=== PATIENT | male | born 2000 | race Caucasian/White ===

== ENCOUNTER 2021-12-31 19:33 | Emergency (ER) | payer OTHER ==
[~2021-12-31] VITALS: Ht 170.2 cm; Wt 59.0 kg
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
[2021-12-31] MEDS ORDERED: CEFTRIAXONE 1 G in IV DEXTROSE 5% 50 ML IV ONE (19:45)
[2021-12-31] MEDS ORDERED: HALOPERIDOL LACTATE 5 MG/1 ML VIAL IM ONE (19:45)
[2021-12-31] MEDS ORDERED: IV NORMAL SALINE 1000 ML BAG IV ONE (19:45)
[2021-12-31] MEDS ORDERED: LIDOCAINE 2% (GLYDO= UROJET) 10 ML JELLY MM ONE ×2 (20:00→22:47)
[2021-12-31] MEDS ORDERED: HALOPERIDOL LACTATE 5 MG/1 ML VIAL ONE (20:07)
[2021-12-31 20:30] LABS: MEAN CORPUSCULAR VOLUME 88.8 fL (73.0-96.2); PLATELET COUNT (AUTO) 243 K/uL (152-348)
[2021-12-31] MEDS ORDERED: LORAZEPAM 2 MG/1 ML VIAL IM ONE (20:30)
[2021-12-31 20:34] LABS: CARBON DIOXIDE 28 mmol/L (21-32); CHLORIDE 107 mmol/L (98-107); CREATININE 0.9 mg/dL (0.6-1.3); GLUCOSE 84 mg/dL (74-106); POTASSIUM 3.5 mmol/L (3.5-5.1); UREA NITROGEN, BLOOD 6 mg/dL (7-18)
[2021-12-31 20:40] LABS: ALANINE AMINOTRANSFERASE 57 U/L (16-63); ALKALINE PHOSPHATASE 119 U/L (50-136); ASPARTATE AMINOTRANSFERASE 32 U/L (15-37); BILIRUBIN,DIRECT 0.1 mg/dL (0.0-0.2); BILIRUBIN,TOTAL 0.4 mg/dL (0.2-1.0); TOTAL PROTEIN, SERUM 8.2 g/dL (6.4-8.2)
[2021-12-31] MEDS ORDERED: LORAZEPAM 2 MG/1 ML VIAL ONE (20:45)
[2021-12-31 20:54] LABS: ACETAMINOPHEN < 2.0 ug/mL (10-30)
[2021-12-31 21:02] LABS: THYROID STIMULATING HORMONE 0.731 mIU/mL (0.358-3.740)
[2021-12-31 21:04] LABS: ETHANOL 180 MG/DL (0-0)
[2021-12-31] MEDS ORDERED: CEFTRIAXONE /D5W 50ML IVPB **ER PYXIS IV ONE (22:47)
[2021-12-31 23:17] LABS: *BILIRUBIN,URIN NEGATIVE (NEGATIVE); *BLOOD, URINE NEGATIVE (NEGATIVE); *COLOR,URINE YELLOW (YELLOW); *KETONES,URINE NEGATIVE (NEGATIVE); *UROBILINOGEN,URINE 0.2 E.U./dl (NORMAL); LEUKOCYTE ESTERASE ,URINE NEGATIVE (NEGATIVE); NITRITE, URINE NEGATIVE (NEGATIVE); UGLUCOSE NEGATIVE (NEGATIVE)
[2021-12-31 23:25] LABS: *CLARITY,URINE HAZY (CLEAR)
[2021-12-31 23:26] LABS: BACTERIA,URINE NONE SEEN /HPF (NONE SEEN); RBC,URINE 0-3 /HPF (0-3); SQUAMOUS EPITHELIAL CELL,UR NONE SEEN /HPF (NONE SEEN); WBC,URINE 0-3 /HPF (0-3)
[2021-12-31 23:27] LABS: URINE AMORPHOUS PHOSPHATES MODERATE /HPF
[2021-12-31 23:39] LABS: *AMPHETAMINE, URINE NEGATIVE (NEGATIVE); *CANNABINOID, URINE POSITIVE (NEGATIVE); *COCCAINE, URINE NEGATIVE (NEGATIVE); *OPIATE, URINE NEGATIVE (NEGATIVE); *PHENCYCLIDINE SCREEN,URINE NEGATIVE (NEGATIVE)
--- NOTE | 2022-01-01 00:39 | NUR ---
pt is now off of hard restraints per MD order.
--- NOTE | 2022-01-01 10:00 | NUR ---
pt awake, axox4, has insight why he is here in the hospital. ptambulated to bathroom with stready gait.bf tray and clothing provided for pt.
--- NOTE | 2022-01-01 10:14 | NUR ---
Patient is eating breakfast with good appetite.
--- NOTE | 2022-01-01 10:30 | NUR ---
Patient was given written and verbal discharge instructions. Patient verbalized understanding of instructions. Patient left with brisk steady gait. Patient refused offer of halfway placement. Patient given list of available shelters in surrounding area. Snacks to go was also provided.
== END 2022-01-01 10:30 | disposition home or self-care (01) ==
LOC: ER 19:35
DX: F10.121 Alcohol abuse with intoxication delirium (principal); Y90.6 Blood alcohol level of 120-199 mg/100 ml; Z78.1 Physical restraint status; R94.31 Abnormal electrocardiogram [ECG] [EKG]; Z20.822 Contact with and (suspected) exposure to COVID-19
CPT/HCPCS: 36415; 70450; 71045; 72125; 80048; 80076; 80299; 80307; 80320; 81001; 82550; 84443; 85025; 85730; 87426; 93005; 96365; 96372; 99285; J0696; J1630; J2060; J7040; A4663; C1758; G0480